=== PATIENT | female | born 1950 | race Caucasian/White ===

== ENCOUNTER 2019-01-06 07:03 | Emergency (ER) | payer OTHER ==
[2019-01-06 07:42] VITALS: BP 135/67
--- NOTE | 2019-01-06 08:12 | UC ---
UC General HPI - HPI Summary HPI Summary: 68-year-old female comes in with a chief complaint of bilateral hand and feet pain and numbness. Started about 3 weeks ago. Patient does have fibromyalgia. She has been doing a lot of work with her hands. She is on nonsteroidal anti- inflammatory from her primary care doctor who is in [place] for her fibromyalgia. Patient's temporarily here in [facility]. She'll be here for the next couple of months. No specific injury. Pain is worse when she first wakes up. She reports the pain throughout all the fingers and all the toes. The pain is keeping her from being able to make a full fist. Denies any weakness. There is some pain in both wrists. No pain in the ankles. No fevers or chills feels well otherwise. No known tick bites. No history of diabetes. She is on a statin and also on magnesium. - History of Current Complaint Chief Complaint: UCGeneralIllness Stated Complaint: MERNA HAND/FEET PAIN/TINGLING/NUMBNESS Time Seen by Provider: 01/06/19 07:46 Pain Intensity: 10 - Allergy/Home Medications Allergies/Adverse Reactions: Allergies Allergy/AdvReac Type Severity Reaction Status Date / Time No Known Allergies Allergy Verified 01/06/19 07:34 Home Medications: Home Medications Cholecalciferol (Vitamin D3) [Vitamin D3] 1,000 unit PO DAILY 01/06/19 [History Confirmed 01/06/19] Diclofenac 1% GEL (NF) [Voltaren 1% GEL (NF)] 1 applic TOPICAL DAILY PRN [History Confirmed 01/06/19] Escitalopram * [Lexapro *] 20 mg PO DAILY 01/06/19 [History Confirmed 01/06/19] Etodolac 400 mg PO BID 01/06/19 [History Confirmed 01/06/19] Levothyroxine TAB* [Synthroid TAB*] 25 mcg PO DAILY 01/06/19 [History Confirmed 01/06/19] Magnesium Oxide [Magnesium] 250 mg PO DAILY 01/06/19 [History Confirmed 01/06/19 ] Pravastatin Sodium [Pravachol] 40 mg PO DAILY 01/06/19 [History Confirmed ] Pregabalin CAP(*) [Lyrica CAP(*)] 100 mg PO DAILY 01/06/19 [History Confirmed ] Pregabalin CAP(*) [Lyrica CAP(*)] 300 mg PO DAILY 01/06/19 [History Confirmed ] rOPINIRole TAB* [Requip TAB*] 1 mg PO BID 01/06/19 [History Confirmed 01/06/19] PMH/Surg Hx/FS Hx/Imm Hx Previously Healthy: Yes - FIBROMYALGIA Endocrine History: Hypothyroidism, Dyslipidemia - Surgical History Surgical History: Yes Surgery Procedure, Year, and Place: 2 . appy. Tonsilectomy - Family History Known Family History: Positive: Non-Contributory - Social History Alcohol Use: None Substance Use Type: None Smoking Status (MU): Never Smoked Tobacco Review of Systems All Other Systems Reviewed And Are Negative: Yes Constitutional: Positive: Other - SEE HPI Skin: Positive: Other - SEE HPI Eyes: Positive: Negative ENT: Positive: Negative Respiratory: Positive: Negative Cardiovascular: Positive: Negative Gastrointestinal: Positive: Negative Motor: Positive: Other - SEE HPI Neurovascular: Positive: Other - SEE HPI Musculoskeletal: Positive: Other: - SEE HPI Neurological: Positive: Other - SEE HPI Psychological: Positive: Negative Is Patient Immunocompromised?: No Physical Exam Triage Information Reviewed: Yes Appearance: Well-Appearing, No Pain Distress, Well-Nourished Vital Signs: Initial Vital Signs Temp 97.9 F 01/06/19 07:35 Pulse 84 01/06/19 07:35 Resp 16 01/06/19 07:35 BP 135/67 01/06/19 07:35 Pulse Ox 98 01/06/19 07:35 Vital Signs Reviewed: Yes Eye Exam: Normal Neck: Positive: Supple Respiratory: Positive: No respiratory distress Musculoskeletal: Positive: Other: - Normal radial pulses bilaterally. Normal dorsalis pedis pulses bilaterally. Normal capillary refill in both hands and feet. Ankles and wrists have full range of motion and full strength. Toes have full range of motion full-strength. 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 She reports the pain is throughout all 5 fingers bilaterally. Negative Tinel's. Negative Phalen's. Neurological: Positive: Alert Psychological: Positive: Age Appropriate Behavior Skin Exam: Normal Course/Dx - Course Course Of Treatment: Patient started on nonsteroidal anti-inflammatory and Lyrica. Given that the symptoms are in both hands and feet and are not limited to a radial nerve distribution it's unlikely this is bilateral carpal tunnel. The possibility of bilateral carpal tunnel and tarsal tunnel is also unlikely. A diffuse peripheral neuropathy is possible. Given that the patient has a history of hypothyroidism is on a statin and magnesium I checked a TSH the CPK and magnesium. Patient has no history of diabetes however we will check a CMP. For inflammation and infectious possibilities checking a CRP CBC and Lyme screen. Patient was placed in cockup splints bilaterally by nursing and clinic. Neurovascular intact after placement of the cockup splints. Plan will be to follow-up with neurology and with orthopedics for further evaluation to determine the cause and treatment for her bilateral hand and feet pain and numbness. Follow-up sooner if worse or any questions or concerns. - Diagnoses Provider Diagnosis: Paresthesia of both hands, Paresthesia of both feet, Pain in both hands, Pain in both feet Discharge ED - Sign-Out/Discharge Documenting (check all that apply): Patient Departure All imaging exams completed and their final reports reviewed: No Studies - Discharge Plan Condition: Stable Disposition: HOME Prescriptions: HYDROcodone/ACETAMIN 5-325 MG* [Foley 5-325 TAB*] 1 tab PO Q4H PRN #20 tab MDD 6 PRN Reason: Pain - Moderate Patient Education Materials: Peripheral Neuropathy (ED) Referrals: [facility] [place] [facility]IAN REFERRAL [Outside] Arcenio Diaz MD [Medical Doctor] - Sam Dennis MD [Medical Doctor] - Additional Instructions: FOLLOW UP WITH YOUR PRIMARY CARE DOCTOR, NEUROLOGY AND ORTHOPEDICS IF NOT COMPLETELY IMPROVED. GET REEVALUATED IF NOT IMPROVING OR WORSE OR ANY QUESTIONS OR CONCERNS. - Billing Disposition and Condition Condition: STABLE Disposition: Home
[2019-01-06 11:36] LABS: ABS Eosinophils 0.4 10^3/ul (0-0.6); ABS Lymphocytes 1.5 10^3/ul (1.0-4.8); ABS Monocytes 0.7 10^3/ul (0-0.8); ABS Neutrophils 4.5 10^3/ul (1.5-7.7); Hematocrit 40 % (35-47); Hemoglobin 13.5 g/dL (12.0-16.0); Lymphocyte % 20.5 %; Mean Corpuscular HGB Conc 34 g/dL (31-36); Mean Corpuscular Hemoglobin 31 pg (27-31); Mean Corpuscular Volume 93 fL (80-97); Nucleated Red Blood Cells % 0.1; Platelet Count 210 10^3/uL (150-450); Red Blood Count 4.32 10^6 /uL (3.70-4.87); Red Cell Distribution Width 14 % (10-15); White Blood Count 7.1 10^3/uL (3.5-10.8)
[2019-01-06 12:02] LABS: TSH (Thyroid Stimulating Horm) 2.75 mcIU/mL (0.34-5.60)
[2019-01-06 12:31] LABS: Magnesium 2.1 mg/dL (1.9-2.7)
[2019-01-07 08:22] LABS: Albumin 4.4 g/dL (3.2-5.2); Albumin/Globulin Ratio 1.6 (1-3); C Reactive Protein 2.9 mg/L (<8.01); Calcium 9.5 mg/dL (8.6-10.3); EGFR African American 72.1 (>60); EGFR Non-African American 59.6 (>60); Globulin 2.8 g/dL (2-4); Total Bilirubin 0.7 mg/dL (0.2-1.0); Total Protein 7.2 g/dL (6.4-8.9)
== END 2019-01-06 08:20 | disposition home or self-care (01) ==
LOC: UCCORT 07:03
DX: M79.642 Pain in left hand (principal); M79.641 Pain in right hand; M79.672 Pain in left foot; M79.671 Pain in right foot; R20.2 Paresthesia of skin; M79.7 Fibromyalgia; E03.9 Hypothyroidism, unspecified; E78.5 Hyperlipidemia, unspecified
CPT/HCPCS: 36415; 80053; 82550; 83735; 84443; 85025; 86140; 86618; 99203; G0463

== ENCOUNTER 2019-01-30 07:10 | Emergency (ER) | payer OTHER ==
[2019-01-30 07:41] VITALS: BP 105/61
--- NOTE | 2019-01-30 08:22 | ED ---
Upper Extremity Pain - HPI Summary HPI Summary: 68 yr old female with the complaint of bilateral hand pain. The patient has been having symptoms for about a month. She has pain in the palmar surface, median nerve distribution both hands. No other pain, but has some tingling in this area as well. No fever or chills. She does not feel ill otherwise. She has fibromyalgia. She took steroids over and it relieved her symptoms. She has been off them for three days now and now the symptoms are returning. She has an appointment with neurology and primary in [place] in a little over a week. No injury, no swelling, no trauma. - History of Current Complaint Chief Complaint: UCUpperExtremity Stated Complaint: BILAT HAND PAIN Time Seen by Provider: 01/30/19 08:02 - Allergies/Home Medications Allergies/Adverse Reactions: Allergies Allergy/AdvReac Type Severity Reaction Status Date / Time No Known Allergies Allergy Verified 01/06/19 07:34 PMH/Surg Hx/FS Hx/Imm Hx Endocrine/Hematology History: Reports: Hx Thyroid Disease - Hypothyroidism - Surgical History Surgery Procedure, Year, and Place: 2 . appy. Tonsilectomy Infectious Disease History: No Infectious Disease History: Denies: Traveled Outside the [place] in Last 30 Days - Family History Known Family History: Positive: Non-Contributory - Social History Occupation: Retired Alcohol Use: None Substance Use Type: Reports: None Smoking Status (MU): Never Smoked Tobacco Review of Systems Constitutional: Negative Positive: Other - bilateral hand pain All Other Systems Reviewed And Are Negative: Yes Physical Exam Triage Information Reviewed: Yes Vital Signs On Initial Exam: Initial Vitals Temp Pulse Resp BP Pulse Ox 98.5 F 69 16 105/61 98 01/30/19 07:16 01/30/19 07:16 01/30/19 07:16 01/30/19 07:16 01/30/19 07:16 Vital Signs Reviewed: Yes Appearance: Positive: Well-Appearing, No Pain Distress Skin: Positive: Warm, Skin Color Reflects Adequate Perfusion Head/Face: Positive: Normal Head/Face Inspection Eyes: Positive: Normal ENT: Positive: Normal ENT inspection Neck: Positive: Supple, Nontender Respiratory/Lung Sounds: Positive: Clear to Auscultation, Breath Sounds Present Cardiovascular: Positive: RRR, Pulses are Symmetrical in both Upper and Lower Extremities. Negative: Murmur Abdomen Description: Negative: Distended Musculoskeletal: Positive: Other - the patient has positive phalen and tinel test both hands. She has symptoms only in the median nerve sensory distribution. No weakness, swelling or redness to the hands. Neurological: Positive: Sensory/Motor Intact, Alert, Oriented to Person Place, Time, CN Intact II-III, Normal Gait, Speech Normal Psychiatric: Positive: Normal Diagnostics - Vital Signs Vital Signs Temp Pulse Resp BP Pulse Ox 01/30/19 07:16 98.5 F 69 16 105/61 98 - Laboratory Lab Statement: Any lab studies that have been ordered have been reviewed, and results considered in the medical decision making process. Course/Dx - Course Course Of Treatment: 68 yr old with bilateral carpal tunnel. Medrol dose demetra prescribed and she will follow up with neurology in [place] for further work up. - Diagnoses Provider Diagnoses: Carpal tunnel syndrome on both sides Discharge ED - Sign-Out/Discharge Documenting (check all that apply): Patient Departure All imaging exams completed and their final reports reviewed: No Studies - Discharge Plan Condition: Good Disposition: HOME Prescriptions: methylPREDNISolone [Medrol Dosepak 4 MG*] 4 mg PO .SEE DEMETRA INSTRUCTION #1 demetra Patient Education Materials: Paresthesia (ED), Carpal Tunnel Surgery (DC) Referrals: No Primary Care Phys,NOPCP [Primary Care Provider] - Wellington Jc MD [Medical Doctor] - - Billing Disposition and Condition Condition: GOOD Disposition: Home
== END 2019-01-30 08:37 | disposition home or self-care (01) ==
LOC: UCCORT 07:10
DX: G56.03 Carpal tunnel syndrome, bilateral upper limbs (principal)
CPT/HCPCS: 99212; G0463

== ENCOUNTER 2019-03-07 07:19 | Emergency (ER) | payer OTHER ==
[2019-03-07 07:46] VITALS: BP 131/57
--- NOTE | 2019-03-07 08:02 | UC ---
Hand/Wrist HPI - HPI Summary HPI Summary: 68 yo woman with bilateral hand pain; this is her 3rd visit for evaluation. She was diagnosed with bilateral severe carpal tunnel syndorme by nerve conduction studies last month, and has continued pain. She will be seeing an orthopedist in [place] in 2 weeks to discuss surgical release. She has found medrol dose pack the most helpful intervention in the past months. Pain is not controlled by tramadol, and is wakening her at night. She has stopped using diclofenac gel as it is not effective. She has been on Lyrica for years for neuropathy. Notably her leg pain has resolved. Has not had any side effects secondary to Lyrica, has no hx of diabetes or hypertension. Continues to wear bilateral hand braces. - History Of Current Complaint Chief Complaint: UCUpperExtremity Stated Complaint: BILATERAL HAND PAIN Time Seen by Provider: 03/07/19 07:52 Hx Obtained From: Patient Onset/Duration: Gradual Onset, Lasting Weeks, Still Present Severity Initially: Moderate Severity Currently: Moderate Pain Intensity: 6 Character Of Pain: Aching Aggravating Factor(s): Movement Alleviating Factor(s): Rest, Other - braces Associated Signs And Symptoms: Positive: Numbness/Tingling - Allergies/Home Medications Allergies/Adverse Reactions: Allergies Allergy/AdvReac Type Severity Reaction Status Date / Time No Known Allergies Allergy Verified 03/07/19 07:46 Home Medications: Home Medications traMADol TAB* [Ultram*] 50 mg PO Q8H PRN 03/07/19 [History Confirmed 03/07/19] PMH/Surg Hx/FS Hx/Imm Hx Previously Healthy: Yes - fibromyalgia and chronic pain Endocrine History: Dyslipidemia - Surgical History Surgical History: Yes Surgery Procedure, Year, and Place: 2 . appy. Tonsilectomy - Family History Known Family History: Positive: Non-Contributory - Social History Occupation: Retired Lives: With Family Alcohol Use: None Substance Use Type: None Smoking Status (MU): Never Smoked Tobacco Review of Systems All Other Systems Reviewed And Are Negative: Yes Constitutional: Positive: Negative Skin: Positive: Negative Eyes: Positive: Negative ENT: Positive: Negative Respiratory: Positive: Negative Cardiovascular: Positive: Negative Gastrointestinal: Positive: Negative. Negative: Abdominal Pain, Nausea Genitourinary: Positive: Negative Motor: Positive: Negative Neurovascular: Positive: Negative Musculoskeletal: Positive: Arthralgia Neurological: Positive: Numbness Psychological: Positive: Negative Is Patient Immunocompromised?: No Physical Exam Triage Information Reviewed: Yes Appearance: Well-Appearing Vital Signs: Initial Vital Signs Temp 98.6 F 03/07/19 07:36 Pulse 77 03/07/19 07:36 Resp 20 03/07/19 07:36 BP 131/57 03/07/19 07:36 Pulse Ox 97 03/07/19 07:36 Eye Exam: Normal ENT Exam: Normal Respiratory: Positive: Lungs clear, Normal breath sounds Cardiovascular: Positive: RRR, No Murmur Musculoskeletal Exam: Other - hands braced and not examined as diagnosis is confirmed and she has no new symptoms Neurological: Positive: Alert, Muscle Tone Normal Psychological Exam: Normal Skin Exam: Normal Hand/Wrist Course/Dx - Course Course Of Treatment: medrol dose pack given - Differential Dx/Diagnosis Differential Diagnosis/HQI/PQRI: Other - bilateral CTS Provider Diagnosis: Bilateral carpal tunnel syndrome Discharge ED - Sign-Out/Discharge Documenting (check all that apply): Patient Departure All imaging exams completed and their final reports reviewed: No Studies - Discharge Plan Condition: Stable Disposition: HOME Prescriptions: methylPREDNISolone [Medrol] 4 mg PO DAILY #1 [id number] Patient Education Materials: Paresthesia (ED) Referrals: No Primary Care Phys,NOPCP [Primary Care Provider] - - Billing Disposition and Condition Condition: STABLE Disposition: Home
== END 2019-03-07 08:19 | disposition home or self-care (01) ==
LOC: UCCORT 07:19
DX: G56.03 Carpal tunnel syndrome, bilateral upper limbs (principal)
CPT/HCPCS: 99201; G0463